=== PATIENT | male | born 1955 | race Caucasian/White ===

== ENCOUNTER 2018-01-20 13:45 | Emergency (ER) | payer MEDICARE ==
[~2018-01-20] VITALS: Ht 177.8 cm; Wt 67.0 kg
[~2018-01-20 13:45] MED LIST: ASPI-1265 PO; ASPI81TA30 PO; ATI1T PO; LOSA25TA96 PO; LOVA20TA2 PO; PROM25TA14 PO
[2018-01-20 14:06] LABS: BASOPHILS % (AUTO) 0.3 % (0-1); EOSINOPHILS # (AUTO) 0.2 X10'3 (0-0.9); EOSINOPHILS % (AUTO) 2.4 % (0-6); HEMATOCRIT 49.7 % (42.0-52.0); HEMOGLOBIN 17.3 g/dl (14.0-17.9); LYMPHOCYTES # (AUTO) 1.6 X10'3 (1.1-4.8); LYMPHOCYTES % (AUTO) 22.2 % (21-51); MEAN CORPUSCULAR HEMOGLOBIN 30.5 PG (27.0-31.0); MEAN CORPUSCULAR HGB CONC 34.7 % (33.0-36.5); MONOCYTES # (AUTO) 0.5 X10'3 (0-0.9); MONOCYTES % (AUTO) 6.4 % (2-12); NEUTROPHILS # (AUTO) 5.1 X10'3 (1.8-7.7); NEUTROPHILS % (AUTO) 68.7 % (42-75); PLATELET COUNT 349 X10'3 (140-440); RED BLOOD COUNT 5.65 X10'6 (4.70-6.10); WHITE BLOOD COUNT 7.4 X10'3 (4.5-11.0)
[2018-01-20 14:14] LABS: PARTIAL THROMBOPLASTIN TIME 28 SECONDS (22-32); PROTHROMBIN TIME 10.7 SECONDS (9.0-12.0)
[2018-01-20 14:18] LABS: ALANINE AMINOTRANSFERASE 29 U/L (12-78); ALBUMIN 4.2 G/DL (3.4-5.0); ALBUMIN/GLOBULIN RATIO 1.2 (1.1-1.5); ALKALINE PHOSPHATASE 105 IU/L (46-116); ANION GAP 11 (8-16); ASPARTATE AMINO TRANSFERASE 16 U/L (10-37); BILIRUBIN,TOTAL 0.5 MG/DL (0.1-1.0); BLOOD UREA NITROGEN 6 MG/DL (7-18); BUN/CREATININE RATIO 7.4 (5.4-32.0); CALCIUM 8.9 MG/DL (8.5-10.1); CHLORIDE 92 MMOL/L (99-107); CREATININE 0.81 MG/DL (0.60-1.10); GLUCOSE 97 MG/DL (70-104); POTASSIUM 4.4 MMOL/L (3.5-5.1); SODIUM 126 MMOL/L (135-145); TOTAL CARBON DIOXIDE 22.8 MMOL/L (24-32); TOTAL PROTEIN 7.7 G/DL (6.4-8.2); eGFR > 90 ML/MIN
[2018-01-20] MEDS ORDERED: normal saline 1000ml 1,000 ML IV ONE (14:30)
[2018-01-20] MEDS ORDERED: LORazepam 2 mg/ml vial IV ONE (14:30)
[2018-01-20] MEDS ORDERED: ondansetron/PF 4mg/2ml inj IV ONE (14:30)
[2018-01-20] MEDS ORDERED: iohexol 350MG/ML 100ml bottle IV ONE (14:59)
[2018-01-20 18:17] VITALS: BP 135/92
== END 2018-01-20 18:18 | disposition home or self-care (01) ==
LOC: ER 13:45
DX: R07.89 Other chest pain (principal); F41.9 Anxiety disorder, unspecified; R53.1 Weakness; R19.7 Diarrhea, unspecified; R11.10 Vomiting, unspecified; R63.0 Anorexia; Z98.61 Coronary angioplasty status; Z98.890 Other specified postprocedural states; Z79.82 Long term (current) use of aspirin; Z79.899 Other long term (current) drug therapy
CPT/HCPCS: 36415; 71045; 71275; 80053; 84484; 85025; 85610; 85730; 93005; 96361; 96374; 96375; 99285; J2060; J2405; J7030; Q9967

== ENCOUNTER 2021-12-26 22:31 | Emergency (ER) | payer MEDICARE, MEDICAID ==
[~2021-12-26] VITALS: Ht 177.8 cm; Wt 70.4 kg
[2021-12-26 22:42] VITALS: BP 163/95
[2021-12-26 23:13] LABS: BASOPHILS % (AUTO) 0.5 % (0-1); EOSINOPHILS # (AUTO) 0.4 X10'3 (0-0.9); EOSINOPHILS % (AUTO) 8.2 % (0-6); HEMATOCRIT 40.9 % (42.0-52.0); HEMOGLOBIN 13.9 g/dl (14.0-17.9); LYMPHOCYTES # (AUTO) 1.2 X10'3 (1.1-4.8); LYMPHOCYTES % (AUTO) 28.8 % (21-51); MEAN CORPUSCULAR HEMOGLOBIN 30.5 PG (27.0-31.0); MEAN CORPUSCULAR VOLUME 89.7 FL (78-98); MEAN PLATELET VOLUME 6.2 FL (7.4-10.4); MONOCYTES # (AUTO) 0.9 X10'3 (0-0.9); MONOCYTES % (AUTO) 20.1 % (2-12); NEUTROPHILS # (AUTO) 1.8 X10'3 (1.8-7.7); NEUTROPHILS % (AUTO) 42.4 % (42-75); PLATELET COUNT 193 X10'3 (140-440); RED BLOOD COUNT 4.56 X10'6 (4.70-6.10); RED CELL DISTRIBUTION WIDTH 13.6 % (11.5-14.5); WHITE BLOOD COUNT 4.3 X10'3 (4.5-11.0)
[2021-12-26 23:26] LABS: ALANINE AMINOTRANSFERASE 73 U/L (12-78); ALBUMIN 4.2 G/DL (3.4-5.0); ALBUMIN/GLOBULIN RATIO 1.3 (1.1-1.5); ALKALINE PHOSPHATASE 147 IU/L (46-116); ANION GAP 9 (8-16); ASPARTATE AMINO TRANSFERASE 83 U/L (10-37); BILIRUBIN,TOTAL 0.8 MG/DL (0.1-1.0); BLOOD UREA NITROGEN 4 MG/DL (7-18); BUN/CREATININE RATIO 5.9 (5.4-32.0); CALCIUM 8.2 MG/DL (8.5-10.1); CHLORIDE 90 MMOL/L (99-107); CREATININE 0.68 MG/DL (0.60-1.10); GLUCOSE 84 MG/DL (70-104); LIPASE 70 U/L (73-393); POTASSIUM 3.9 MMOL/L (3.5-5.1); SODIUM 123 MMOL/L (135-145); TOTAL CARBON DIOXIDE 24.2 MMOL/L (24-32); TOTAL PROTEIN 7.5 G/DL (6.4-8.2); eGFR > 90 ML/MIN
[2021-12-26 23:44] LABS: PLATELET ESTIMATE NORMAL; TOTAL CELLS COUNTED 100
== END 2021-12-27 02:19 | disposition left against medical advice (07) ==
LOC: ER 22:32
DX: R41.0 Disorientation, unspecified (principal); Z53.21 Procedure and treatment not carried out due to patient leaving prior to being seen by health care provider
CPT/HCPCS: 36415; 70450; 72125; 80053; 82140; 83690; 85007; 85025

== ENCOUNTER 2021-12-27 10:44 | Emergency (ER) | payer MEDICARE, MEDICAID ==
[~2021-12-27] VITALS: Ht 177.8 cm; Wt 68.2 kg
[2021-12-27] MEDS ORDERED: folic acid 1mg/0.2ml inj IV ONE (11:50)
[2021-12-27] MEDS ORDERED: normal saline 1000ML IV soln IVB ONE (11:50)
[2021-12-27] MEDS ORDERED: thiamine 100mg/ml 2ml inj. IV ONE (11:50)
[2021-12-27 12:21] LABS: BASOPHILS % (AUTO) 0.2 % (0-1); EOSINOPHILS # (AUTO) 0.4 X10'3 (0-0.9); EOSINOPHILS % (AUTO) 12.1 % (0-6); HEMATOCRIT 40.4 % (42.0-52.0); HEMOGLOBIN 13.8 g/dl (14.0-17.9); LYMPHOCYTES # (AUTO) 0.9 X10'3 (1.1-4.8); LYMPHOCYTES % (AUTO) 31.5 % (21-51); MEAN CORPUSCULAR HEMOGLOBIN 30.6 PG (27.0-31.0); MEAN CORPUSCULAR HGB CONC 34.1 g/dL (33.0-36.5); MEAN CORPUSCULAR VOLUME 89.7 FL (78-98); MEAN PLATELET VOLUME 6.2 FL (7.4-10.4); MONOCYTES # (AUTO) 0.6 X10'3 (0-0.9); MONOCYTES % (AUTO) 19.2 % (2-12); NEUTROPHILS # (AUTO) 1.1 X10'3 (1.8-7.7); PLATELET COUNT 173 X10'3 (140-440); RED CELL DISTRIBUTION WIDTH 13.9 % (11.5-14.5); WHITE BLOOD COUNT 2.9 X10'3 (4.5-11.0)
[2021-12-27 12:37] VITALS: BP 140/88
[2021-12-27 12:46] LABS: ALANINE AMINOTRANSFERASE 103 U/L (12-78); ALBUMIN/GLOBULIN RATIO 1.3 (1.1-1.5); ALKALINE PHOSPHATASE 135 IU/L (46-116); ANION GAP 11 (8-16); ASPARTATE AMINO TRANSFERASE 149 U/L (10-37); BILIRUBIN,TOTAL 0.8 MG/DL (0.1-1.0); BLOOD UREA NITROGEN 3 MG/DL (7-18); BUN/CREATININE RATIO 5.1 (5.4-32.0); CALCIUM 8.7 MG/DL (8.5-10.1); CHLORIDE 93 MMOL/L (99-107); CREATININE 0.59 MG/DL (0.60-1.10); GLUCOSE 79 MG/DL (70-104); SODIUM 127 MMOL/L (135-145); TOTAL CARBON DIOXIDE 23.4 MMOL/L (24-32); TOTAL PROTEIN 7.2 G/DL (6.4-8.2); eGFR > 90 ML/MIN
[2021-12-27 12:47] LABS: TOTAL CELLS COUNTED 100
[2021-12-27 12:48] LABS: PLATELET ESTIMATE NORMAL
== END 2021-12-27 14:42 | disposition home or self-care (01) ==
LOC: ER 10:44
DX: E87.1 Hypo-osmolality and hyponatremia (principal); F10.129 Alcohol abuse with intoxication, unspecified; R53.83 Other fatigue; I25.10 Atherosclerotic heart disease of native coronary artery without angina pectoris; E78.00 Pure hypercholesterolemia, unspecified; I10 Essential (primary) hypertension; Z95.5 Presence of coronary angioplasty implant and graft; Z72.89 Other problems related to lifestyle; Z79.82 Long term (current) use of aspirin; Z79.899 Other long term (current) drug therapy; Y90.7 Blood alcohol level of 200-239 mg/100 ml
CPT/HCPCS: 71045; 80053; 80320; 84484; 85007; 85025; 96361; 96374; 96375; 99284; J3411; J3490; J7030

== ENCOUNTER 2025-04-04 09:52 | Emergency (ER) | payer MEDICARE, MEDICAID ==
[~2025-04-04] VITALS: Ht 177.8 cm; Wt 71.3 kg
[~2025-04-04 09:52] MED LIST changes: +LOSA-415 PO; -LOSA25TA96 PO
--- NOTE | 2025-04-04 10:14 | Physician Documentation ---
History of Present Illness ~ Chief Complaint: Anxiety Stated Complaint: ANXIETY Time Seen by MD: 10:12 OK to notify your PCP?: Yes Primary Medical Doctor: CHIN Wood Source: patient Mode of Arrival: POV Exam Limitations: no limitations HPI 69-year-old male presents with increased anxiety for the past week. He states that he has had a panic attack in the past, and this feels similar. He reports that he had an EKG done last time that he had a panic attack and then was seen by Dr. Maddox which resulted in a unnecessary chest pain workup and procedure. He denies any chest pain. He has any shortness of breath, DE, cardiac history. He reports drinking alcohol daily, last drink was last night, no plans to stop drinking. Medication Reconciliation Allergies: Coded Allergies: No Known Allergies (Unverified , 04/04/25) Scheduled Aspirin (Aspirin), 81 MG PO DAILY, (Reported) Aspirin (Aspirin), 1 TABLET PO DAILY Lorazepam (Ativan), 1 MG PO Q8H PRN ANXIETY Losartan Potassium* (Cozaar*), 50 MG PO DAILY, (Reported) Lovastatin* (Mevacor*), 20 MG PO HS, (Reported) Promethazine HCl (Promethazine HCl), 50 MG PO HS, (Reported) Past Medical History Past Medical History: Coronary Artery Disease, High Cholesterol, Hypertension, Anxiety Past Surgical History: angioplasty, other Alcohol Use: Heavy Lives with: Family Lives In: Home Physical Exam Vital Signs: Temperature: 98.4, Source: Temporal, Heart Rate: 104, Respiratory Rate: 20, BP: 131/77, Pulse Oximetry: 97, Weight: 71.300 Oxygen Flow Rate: 0 Progress Results/Orders Reviewed/noted all lab results: Yes Results/Orders Vital Signs 04/04/25 04/04/25 10:07 10:50 Temp 98.4 Pulse 104 92 Resp 20 15 B/P (MAP) 131/77 157/77 (103) Pulse Ox 97 92 O2 Flow Rate 0 EKG/XRAY/CT/US/VASC/MRI EKG : Additional Comment Electrocardiogram: as interpreted by me; normal sinus rhythm, no axis deviation, no acute ischemia, normal intervals, no pre-excitation pattern. +4 monomorphic PVCs. Medical Decision Making Additional info obtained from: old records Findings He has increased anxiety which does not have any known trigger. He states that in the past he was given Xanax which was helpful. He is requesting an injection of medication to make him feel better. He does not know which medications he takes at home and states that his son-in-law helps to manage his medications. Upon record review he has medications already prescribed to help him sleep that have directions that state 1-2 tablets. We discussed that for those medications he can take the 2 tablets as directed to help with his sleep. I gave him an injection of Valium while here in the department. He does have a history of alcoholism and drinks about a six-pack of beer every day. He is not exhibiting any signs of alcohol withdrawal such as shakiness or hallucinations. He denies any HI or SI. His EKG shows frequent monomorphic PVCs. He reports that he has not been sleeping well. I asked him if he is able to feel the early heartbeats and he states he does not feel them. He denies any chest pain at this time. Differential Dx:Considerations: Include: Alcohol abuse, Anxiety, Encephaloathy, Homicidal, Schizophrenia, Suicidal Departure Disposition: 01 HOME / SELF CARE / HOMELESS Impression: Primary Impression: Anxiety attack Additional Impression: Alcoholism Condition: Stable Discharge Instructions: Panic Attack Additional Instructions: Continue to take your prescribed medications. On a couple of the medications is for bedtime it says you can take 1-2 tablets. If you are feeling more anxious, tried taking the 2 tablets as directed. Continue to follow up with your mental health provider as scheduled. Return back here for any new or worsening symptoms. Referrals: NO PRIMARY CARE PROVIDER (PCP) Education Educated: Patient Educated regarding: diagnosis, treatment, prognosis, need for follow up Additional Comment Medical Screen Exam This patient recieved a medical screening examination. After reviewing the individual's medical complaints with presenting symptoms and performing an appropriate physical examination, it was determined that no immediate life- threatening emergency medical condition is present. This individual is also not a women having contractions. Signature Scribe Signature: . Attestation: Scribed for Yesy Gonzales Bulb Grader by Yesy Knowles NP . 04/04/25 11:42 Parts of this note were created using [employer] voice recognition software program. While efforts were made to correct any mistakes made by this voice recognition software program, nonsensical phrases may remain in this note. In addition, there may be errors and syntax, grammar, content and spelling. [facility] Apr 04, 2025 10:14
--- NOTE | 2025-04-04 10:25 | ELECTROCARDIOGRAPH REPORT ---
[facility] Test Date: 2025-04-04 Test Time: 10:23:16 Pat Name: PRASANNA BRODERICK Department: [facility]- Patient ID: [facility]-[id number] Room: Gender: M Slate Trimmer: : 1955 Requested By: NEMO SILVA Order Number: [id number] Reading MD: Measurements Intervals [place] Rate: 104 P: 82 LA: 142 QRS: 82 QRSD: 88 T: 70 QT: 354 QTc: 466 Interpretive Statements Sinus tachycardia Ventricular trigeminy Borderline right axis deviation RSR' in V1 or V2, probably normal variant Please click the below link to view image of tracing.
[2025-04-04] MEDS: diazepam inj 5 MG/ML inj. IM ONE (11:43)
[2025-04-04 12:03] VITALS: BP 151/78; PULSE 90; RESP 15; TEMP 98; O2SAT 95
== END 2025-04-04 12:05 | disposition home or self-care (01) ==
LOC: ER 09:53
DX: F41.0 Panic disorder [episodic paroxysmal anxiety] (principal); F10.20 Alcohol dependence, uncomplicated; I10 Essential (primary) hypertension; E78.00 Pure hypercholesterolemia, unspecified; I21.9 Acute myocardial infarction, unspecified; I25.10 Atherosclerotic heart disease of native coronary artery without angina pectoris; Y90.9 Presence of alcohol in blood, level not specified
CPT/HCPCS: 93005; 96372; 99283; J3360